=== PATIENT | male | born 1980 | race Caucasian/White ===

== ENCOUNTER 2018-04-25 17:46 | Emergency (ER) | payer SELFPAY ==
[~2018-04-25] VITALS: Ht 180.3 cm; Wt 77.5 kg
[~2018-04-25 17:46] MED LIST: DURAGESIC100 MICROG TD; NOHOMEMEDS
[2018-04-25] MEDS ORDERED: FIORICET 50-301 EAC1 PO (20:58)
[2018-04-25 21:59] VITALS: BP 146/108
== END 2018-04-25 21:59 | disposition home or self-care (01) ==
LOC: EME 17:46
DX: G43.109 Migraine with aura, not intractable, without status migrainosus (principal); R11.0 Nausea; F17.200 Nicotine dependence, unspecified, uncomplicated
CPT/HCPCS: 99281; 99284; J0780; J1100; J1885; J7030